=== PATIENT | female | born 1980 | race Caucasian/White ===

== ENCOUNTER 2018-01-06 01:01 | Emergency (ER) | payer OTHER ==
--- NOTE | 2018-01-06 02:12 | PDOC ---
History of Present Illness - General Chief Complaint: Syncope/Near Syncope Stated Complaint: FAINTED Time Seen by Provider: 01/06/18 02:04 History Source: Patient - History of Present Illness Initial Comments: 01/06/18 04:57 37 year old female with nausea, vomiting, diarrhea nad pelvic pain after taking the medication for yesterday evening. patient reports vaginal bleeding not worse than normal bleeding for patient. patient reports that she was sitting on the toilet and woke up on the floor with a bump to the forehead. Past History - Past Medical History Allergies/Adverse Reactions: Allergies Allergy/AdvReac Type Severity Reaction Status Date / Time No Known Drug Allergies Allergy Verified 01/06/18 02:47 Home Medications: Ambulatory Orders No Home Medications 0 dose .ROUTE UTDICT 07/15/12 Anemia: No Asthma: No Cancer: No Cardiac Disorders: No CVA: No COPD: No CHF: No Dementia: No Diabetes: No GI Disorders: No Disorders: No HTN: No Hypercholesterolemia: No Liver Disease: No Seizures: No Thyroid Disease: No - Suicide/Smoking/Psychosocial Hx Smoking History: Current every day smoker Have you smoked in the past 12 months: Yes Number of Cigarettes Smoked Daily: 20 'Breaking Loose' booklet given: 07/15/12 Hx Alcohol Use: Yes (SOCIALLY) Drug/Substance Use Hx: No Substance Use Type: None Hx Substance Use Treatment: No *Physical Exam - Vital Signs 01/06/18 05:09 Last Vital Signs Temp Pulse Resp BP Pulse Ox 98.8 F 73 16 124/86 100 01/06/18 01:05 01/06/18 01:05 01/06/18 01:05 01/06/18 01:05 01/06/18 01:05 - Physical Exam General Appearance: Yes: Appropriately Dressed, Other (hematoma to forehea) HEENT: positive: Other (abrasion to nose. no deformity) Respiratory/Chest: positive: Lungs Clear, Normal Breath Sounds Gastrointestinal/Abdominal: positive: Normal Bowel Sounds, Soft, Other (pelvic discomfort on palpation) Musculoskeletal: positive: Normal Inspection Extremity: positive: Normal Capillary Refill, Normal Inspection, Normal Range of Motion Heart Score/ECG Review - ECG Intrepretation Rhythm: Regular Rhythm Comment:: 01/06/18 07:03 NSR : 67 bpm ED Treatment Course - LABORATORY CBC & Chemistry Diagram: 01/06/18 05:45 01/06/18 05:45 Medical Decision Making - Medical Decision Making syncope and collapse P: head ct labs IVF zofran toradol EKG 01/06/18 06:52 patient now s/p IVF will follow up with pb/reinsurance accountant in [facility] tomorrow for chemical follow up . likely this was a vasovagal episode during defecation. 01/06/18 06:54 *DC/Admit/Observation/Transfer Diagnosis at time of Disposition: Syncope and collapse Head injury due to trauma Qualifiers: Encounter type: initial encounter Qualified Code(s): S09.90XA - Unspecified injury of head, initial encounter - Discharge Dispostion Disposition: HOME Condition at time of disposition: Fair - Referrals - Patient Instructions Printed Discharge Instructions: DI for Syncope in Adults (Fainting) Additional Instructions: drink plenty of fluids follow up with your chrome polisher as scheduled. Additional Instructions: * Please call your personal physician to report your Emergency Department visit and to report your progress, if any. * If there is no improvement in symptoms in 2 days call your physician. * Return to the Emergency Department for any worsening symptoms. return to the ER if symptoms worsen. - Post Discharge Activity
[2018-01-06] MEDS ORDERED: SODIUM CHLORIDE 1,000 ML IV STA (02:29)
[2018-01-06] MEDS ORDERED: METOCLOPRAMIDE HCL INJECTION 10 MG/2 ML VIAL IVPB ONE (02:29)
[2018-01-06 02:47] VITALS: BMI 20.9
[2018-01-06] MEDS ORDERED: METOCLOPRAMIDE HCL INJECTION 10 MG/2 ML VIAL ONE (05:24)
[2018-01-06] MEDS ORDERED: KETOROLAC TROMETHAMINE 30 MG/1 ML VIAL ONE (05:26)
[2018-01-06] MEDS ORDERED: KETOROLAC TROMETHAMINE 30 MG/1 ML VIAL IVPUSH ONE (05:26)
[2018-01-06 06:04] LABS: BASO % 0.8 % (0-2.0); EOS % 0.3 % (0-4.5); HEMATOCRIT 33.5 % (32.4-45.2); HEMOGLOBIN 10.6 GM/dL (10.7-15.3); LYMPH % 10.5 % (8-40); MCH 21.7 pg (25.7-33.7); MCHC 31.6 g/dl (32.0-36.0); MEAN CELL VOLUME 68.7 fl (80-96); MEAN PLT VOLUME 8.4 fl (7.5-11.1); MONO % 5.9 % (3.8-10.2); NEUT % 82.5 % (42.8-82.8); PLATELET COUNT 308 K/MM3 (134-434); RBC 4.88 M/mm3 (3.60-5.2); RDW 15.7 % (11.6-15.6); WHITE BLOOD COUNT 11.8 K/mm3 (4.0-10.0)
[2018-01-06 06:23] LABS: INR 1.13 (0.83-1.09); PROTHROMBIN TIME (PATIENT) 13.4 SEC (9.7-13.0)
[2018-01-06 06:37] LABS: ALBUMIN 3.7 g/dl (3.4-5.0); ALK PHOS 43 U/L (45-117); ANION GAP 8 MMOL/L (8-16); BLOOD UREA NITROGEN 7 mg/dL (7-18); CALCIUM 8.6 mg/dL (8.5-10.1); CHLORIDE 108 mmol/L (98-107); CO2 21 mmol/L (21-32); CREATININE 0.3 mg/dL (0.55-1.3); GLUCOSE,RANDOM 84 mg/dL (74-106); MAGNESIUM 1.7 mg/dL (1.8-2.4); N-TERMINAL BNP 45.3 pg/ml (5-125); SGOT/AST 13 U/L (15-37); SGPT/ALT 15 U/L (13-61); SODIUM 137 mmol/L (136-145); TOT PROT 6.8 g/dl (6.4-8.2)
[2018-01-06 08:14] VITALS: BP 107/48; PULSE 64; TEMP 98.4
[2018-01-06 09:51] LABS: ANISOCYTOSIS 2+; MACROCYTOSIS 0; PLATELET ESTIMATE NORMAL; TARGET CELLS 2+
--- NOTE | 2018-01-06 11:00 | EKG ---
Test Reason : Blood Pressure : / mmHG Vent. Rate : 067 BPM Atrial Rate : 067 BPM P-R Int : 138 ms QRS Dur : 090 ms QT Int : 442 ms P-R-T Axes : 002 069 024 degrees QTc Int : 467 ms NORMAL SINUS RHYTHM WITH SINUS ARRHYTHMIA CANNOT RULE OUT ANTERIOR INFARCT , AGE UNDETERMINED ABNORMAL ECG NO PREVIOUS ECGS AVAILABLE Confirmed by ANA M FLEMING MD ([id number]) on 01/06/2018 11:00:02 AM Referred By: Confirmed By:ANA M FLEMING MD
== END 2018-01-06 07:18 | disposition home or self-care (01) ==
LOC: JER 01:01
PROC: 3E033GC Introduction of Other Therapeutic Substance into Peripheral Vein, Percutaneous Approach (ICD-10-PCS; principal; 2018-01-06)
PROC: 3E0333Z Introduction of Anti-inflammatory into Peripheral Vein, Percutaneous Approach (ICD-10-PCS; 2018-01-06)
DX: R55 Syncope and collapse (principal); S00.83XA Contusion of other part of head, initial encounter; W18.11XA Fall from or off toilet without subsequent striking against object, initial encounter; Y93.89 Activity, other specified; Y92.012 Bathroom of single-family (private) house as the place of occurrence of the external cause
CPT/HCPCS: 36415; 70450-TC; 80053; 83735; 83880; 84702; 84703; 85025; 85610; 93005; 93010; 96374; 96375; 99283-25; J7030